=== PATIENT | female | born 1955 | race African-American/Black ===

== ENCOUNTER 2023-04-01 22:25 | Inpatient (IN) | payer MEDICARE, OTHER ==
[~2023-04-01] VITALS: Ht 170.2 cm; Wt 86.6 kg
--- NOTE | 2023-04-01 23:45 | NUR ---
#18 H/L PLACED IN L EJ, LABS DRAWN/ SENT TO LAB.
[2023-04-02 00:41] LABS: HEMATOCRIT 37.5 % (31.2-41.9); MEAN CORPUSCULAR HEMOGLOBIN 29.9 uug (24.7-32.8); MEAN CORPUSCULAR VOLUME 92.5 fL (75.5-95.3); PLATELET COUNT (AUTO) 226 K/uL (179-408)
[2023-04-02 01:07] LABS: THYROID STIMULATING HORMONE 1.211 mIU/mL (0.358-3.740)
[2023-04-02 01:15] LABS: ACETAMINOPHEN < 2.0 ug/mL (10-30); ALANINE AMINOTRANSFERASE 33 U/L (14-59); ALKALINE PHOSPHATASE 84 U/L (50-136); ASPARTATE AMINOTRANSFERASE 16 U/L (15-37); BILIRUBIN,DIRECT 0.1 mg/dL (0.0-0.2); BILIRUBIN,TOTAL 0.1 mg/dL (0.2-1.0); CARBON DIOXIDE 29 mmol/L (21-32); CHLORIDE 104 mmol/L (98-107); CREATININE 0.8 mg/dL (0.6-1.3); POTASSIUM 4.8 mmol/L (3.5-5.1); TOTAL PROTEIN, SERUM 6.6 g/dL (6.4-8.2); UREA NITROGEN, BLOOD 14 mg/dL (7-18)
--- NOTE | 2023-04-02 01:15 | NUR ---
IN AND OUT CATH INSERTED/ URINE COLLECTED/ SENT TO LAB.
[2023-04-02 02:05] LABS: *BILIRUBIN,URIN NEGATIVE (NEGATIVE); *BLOOD, URINE NEGATIVE (NEGATIVE); *CLARITY,URINE CLEAR (CLEAR); *COLOR,URINE YELLOW (YELLOW); *KETONES,URINE NEGATIVE (NEGATIVE); *UROBILINOGEN,URINE 0.2 E.U./dl (NORMAL); LEUKOCYTE ESTERASE ,URINE NEGATIVE (NEGATIVE); NITRITE, URINE NEGATIVE (NEGATIVE); PH,URINE 5.5 (5.0-8.0)
[2023-04-02 02:08] LABS: UGLUCOSE 2+ (NEGATIVE)
[2023-04-02 02:18] LABS: *AMPHETAMINE, URINE NEGATIVE (NEGATIVE); *CANNABINOID, URINE NEGATIVE (NEGATIVE); *COCCAINE, URINE NEGATIVE (NEGATIVE); *PHENCYCLIDINE SCREEN,URINE NEGATIVE (NEGATIVE)
--- NOTE | 2023-04-02 04:00 | NUR ---
REPORT GIVEN TO HITESH HERNANDEZ.
--- NOTE | 2023-04-02 04:15 | NUR ---
Pt. admitted to 312 , under care of Dr. TUBBS Belongs List completed
--- NOTE | 2023-04-02 04:15 | NUR ---
RECEIVED PATIENT FROM ER DX: HYPERGLYCEMIA AND INCREASE WEAKNESS . AAOX4,MAEX4 BUT WEAK WAS ABLE TO WALK FROM GURNEY TO BED HAND HELD ASSIST PATIENT WALKS WITH WALKER AT HOME . NO RESPIRATORY DISTRESS NOTED BREATHING EVEN AND UNLABORED. ORIENTED TO ROOM AND EQUIPMENT (CALL LIGHT PLACED WITH IN REACH ).CALLED [facility] FOR ADMISSION ORDERS .
--- NOTE | 2023-04-02 04:29 | NUR ---
DR SKAGGS SPEAKING WITH DR HUTCHISON.
[2023-04-02 04:30] VITALS: BP 142/70; TEMP 98; O2SAT 92
--- NOTE | 2023-04-02 05:01 | NUR ---
called [facility] school community relations coordinator swapnil goff for admission orders .
--- NOTE | 2023-04-02 06:33 | NUR ---
called [facility] service and spoked with service informed need for admission orders for a new patient from ER .
--- NOTE | 2023-04-02 07:30 | NUR ---
REPORT RECEIVED FROM NIGHT NURSE: 1) MAINTAINING A SAFE ENVIRONMENT:Bed alarm activated, in low position, side rails x2 up, call sousa within reach, and floor clear of clutter. 2) BREATHING: No sign of SOB, cyanosis, no sign of distress. On RA - SATS in the high 90s. 3) COMMUNICATION:Patient is able to communicate her needs. 4) EATING & DRINKING:Patient on Consistent Carb Diet.. 5) ELIMINATION: Patient wears a diaper. 6) CONTROLLING BODY TEMPERATURE: Patient is apyrexial - no signs of sepsis observed. 7) HYGIENE: Needs minimum assistance. 8) MOBILIZING: Bed rest, due to condition. 9) SLEEPING: No issues - sleeping at the time of this report. 10)PLAN: (i) Maintaining Safety - SOB, Temperature within normally limits. (ii) Needs a Midline - will ask MD for an order. (ii) Assistance to be provided as needed.
--- NOTE | 2023-04-02 09:00 | NUR ---
AM MEDICATION ADMINISTERED PRESCRIBED.
[2023-04-02] MEDS ORDERED: ONDANSETRON 4 MG/2 ML VIAL IV PRN (09:15)
[2023-04-02] MEDS ORDERED: ZOLPIDEM 5 MG TABLET PO PRN (09:15)
[2023-04-02] MEDS ORDERED: DEXTROSE 50% 50 ML DISP.SYRIN IV PRN (09:15)
[2023-04-02] MEDS ORDERED: MAGNESIUM HYDROXIDE 30 ML LIQUID UDC PO PRN (09:15)
[2023-04-02] MEDS ORDERED: REMEDY ESSENTIAL ZINC PASTE 113 GM TP PRN (09:15)
--- NOTE | 2023-04-02 09:30 | NUR ---
Midline insertion: 1) MD advised. 2) No order provided because patient will not need iv treatment. 3) Once blood sugar has been stabilized - patient will be discharged home.
[2023-04-02] MEDS: ENOXAPARIN SODIUM 40 MG/0.4 ML DISP.SYRIN SQ SCH (10:11)
[2023-04-02 11:12] VITALS: BP 106/42; TEMP 98.7; O2SAT 95
--- NOTE | 2023-04-02 11:25 | NUR ---
BLOOD SUGAR MONITORIN) Blood sugar 263 - insulin administered AC as prescribed. 2) No signs of hypo/hyperglycemia observed
[2023-04-02] MEDS: BLOOD SUGAR DIAGNOSTIC 1 EACH STRIP VI SCH ×3 (11:28→21:04)
[2023-04-02] MEDS: INSULIN REGULAR, HUMAN 300 UNIT/3 ML VIAL SQ PRN ×2 (11:39→17:31)
--- NOTE | 2023-04-02 12:46 | NUR ---
HYGIENE: - Given a wet towel, and washing products as requested.
--- NOTE | 2023-04-02 14:02 | NUR ---
ROUNDING - Asleep comfortably, no sign of pain, or distress observed.
[2023-04-02 15:24] VITALS: BP 110/67; TEMP 98.6; O2SAT 92
--- NOTE | 2023-04-02 16:28 | NUR ---
ROUNDING - Asleep comfortably, no sign of pain, or distress observed.
[2023-04-02] MEDS ORDERED: OXYC-133 PO (16:40)
[2023-04-02] MEDS ORDERED: ATOR20TA PO (16:42)
[2023-04-02] MEDS ORDERED: ASPI81TA31 PO (16:42)
[2023-04-02] MEDS ORDERED: METF-442 PO (16:42)
[2023-04-02] MEDS ORDERED: LOSA25TA27 PO (16:42)
--- NOTE | 2023-04-02 18:39 | NUR ---
END OF SHIFT REPORT: 1) No complaint or non-verbal signs of pain during the rest of this shift. 2) Patient eating & drinking well, no complaint of nausea, vomiting observed or discomfort, or hypo/hyperglycemia observed. 3) No sign of distress, SOB, or cyanosis observed. 4) Will endorse care to night staff accordingly.
[2023-04-02 20:15] VITALS: BP 96/49; TEMP 98.3; O2SAT 93
[2023-04-02] MEDS: INSULIN REGULAR, HUMAN 300 UNITS/3 ML VIAL SQ PRN (21:06)
[2023-04-03] MEDS: ACETAMINOPHEN 325 MG TABLET PO PRN ×2 (02:09→08:32)
--- NOTE | 2023-04-03 04:15 | NUR ---
Awake alert and oriented x4 Admitted for hyperglycemic episode on admission. All needs attended. No acute distress noted. Tylenol given for headache. Incontinent of bowel and bladder. Kept clean and dry Possible d/c today. Right jugular INT intact, flushed and patent. Will monitor patient.VSS.
[2023-04-03 05:25] VITALS: BP 116/61; TEMP 97.7; O2SAT 96
[2023-04-03] MEDS: PANTOPRAZOLE SODIUM 40 MG TABLET.DR PO SCH (06:09)
[2023-04-03] MEDS: BLOOD SUGAR DIAGNOSTIC 1 EACH STRIP VI SCH ×4 (06:31→21:26)
[2023-04-03 06:56] LABS: HEMATOCRIT 36.8 % (31.2-41.9); MEAN CORPUSCULAR HEMOGLOBIN 30.6 uug (24.7-32.8); MEAN CORPUSCULAR VOLUME 91.8 fL (75.5-95.3); PLATELET COUNT (AUTO) 205 K/uL (179-408)
[2023-04-03 07:31] LABS: THYROID STIMULATING HORMONE 1.093 mIU/mL (0.358-3.740)
[2023-04-03 07:35] LABS: CREATININE 0.7 mg/dL (0.6-1.3); PHOSPHOROUS 3.2 mg/dL (2.5-4.9); POTASSIUM 4.1 mmol/L (3.5-5.1)
[2023-04-03 07:51] LABS: MAGNESIUM 1.1 mg/dL (1.8-2.4)
--- NOTE | 2023-04-03 07:58 | NUR ---
CRITICAL LAB: MAG 1.1 H received call from lab, notified Diana Loza NP. DIRECTOR COST acknowledged.
[2023-04-03] MEDS: INSULIN REGULAR, HUMAN 300 UNIT/3 ML VIAL SQ PRN ×3 (08:33→16:40)
[2023-04-03] MEDS: ENOXAPARIN SODIUM 40 MG/0.4 ML DISP.SYRIN SQ SCH (08:34)
[2023-04-03] MEDS ORDERED: MAGNESIUM OXIDE 400 MG TABLET PO ONE (09:00)
[2023-04-03 11:55] VITALS: BP 119/59; TEMP 98.3; O2SAT 97
[2023-04-03] MEDS ORDERED: INSU100V28 SQ ×2 (15:21)
[2023-04-03 16:13] VITALS: BP 124/75; TEMP 98.6; O2SAT 95
--- NOTE | 2023-04-03 16:45 | NUR ---
ACCU CHECK AND INSULIN ADMINISTRATION EDUCATION: Demonstrated and educated pt on proper accu check technique and how test blood sugar. Also demonstrated and educated pt on insulin administration and sliding scale for Humalog. Pt verbalized understanding. Reinforcement needed for home administration with pt's own supplies and machine. Offered [facility] to come and educate, dtr refused.
--- NOTE | 2023-04-03 16:59 | NUR ---
Applied lotion to pt's arms, hands, feet, legs, and face per pt request for dry skin. 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 After application pt said, "Thank you so much."
--- NOTE | 2023-04-03 18:15 | NUR ---
Charge nurse and RN assisting family, latesha White, since [id number] with coordinating with pharmacies, family, and Diana Loza NP to get insulin prescription and accu check machine and needles for the pt prior to discharge.
[2023-04-03 20:35] VITALS: BP 132/73; TEMP 98.4; O2SAT 94
[2023-04-04 04:25] VITALS: BP 133/69; TEMP 98.4; O2SAT 94
[2023-04-04] MEDS: PANTOPRAZOLE SODIUM 40 MG TABLET.DR PO SCH (06:05)
[2023-04-04] MEDS: BLOOD SUGAR DIAGNOSTIC 1 EACH STRIP VI SCH ×4 (06:52→20:50)
[2023-04-04] MEDS: ENOXAPARIN SODIUM 40 MG/0.4 ML DISP.SYRIN SQ SCH (08:16)
[2023-04-04 08:42] LABS: CREATININE 0.7 mg/dL (0.6-1.3); POTASSIUM 4.1 mmol/L (3.5-5.1)
[2023-04-04 08:47] LABS: MAGNESIUM 1.1 mg/dL (1.8-2.4)
[2023-04-04] MEDS: INSULIN REGULAR, HUMAN 300 UNIT/3 ML VIAL SQ PRN ×2 (11:31→17:11)
[2023-04-04 11:34] VITALS: BP 120/62; TEMP 98.6; O2SAT 94
[2023-04-04 15:08] VITALS: BP 122/70; TEMP 98.2; O2SAT 95
[2023-04-04] MEDS ORDERED: MAGNESIUM OXIDE 400 MG TABLET PO ONE ×2 (17:00→18:00)
--- NOTE | 2023-04-04 18:32 | NUR ---
Patient awake and alert. Blood sugar have been elevated requiring insulin coverage. Patient for discharge today, provider called pt pharmacy and clarified dc insulin order. Notified daughter and said she will come in today and will wait first for pharmacy's call when med ready.
[2023-04-04 20:17] VITALS: BP 127/72; TEMP 98.1; O2SAT 92
[2023-04-04] MEDS: INSULIN REGULAR, HUMAN 300 UNITS/3 ML VIAL SQ PRN (20:52)
--- NOTE | 2023-04-04 21:52 | NUR ---
Pt received in bed able to ambulate around the room no discomfort report BS check 234 coverage with 4 units insulin as order Pt has a snack tolerates well po intake. 2139 Pt's daughter Karina came to forklift picker Pt who has an order to be discharge today. Niba understood discharge instructions all belongings given to pt, and Pt signed forms. Pt discharged AOX4 NO PAIN AFEBRILE stable condition understood to follow up with PCP AND NIBA STATES SHE GOT THE INSULIN PRESCRIBED ALREADY. pT TRANSPORTED BY W/C TO HER OWN PRIVATE CAR.
== END 2023-04-04 21:45 | disposition home or self-care (01) | DRG 638 ==
LOC: ER 22:25 → TELE3 04-02 04:05 → MEDSURG3 04-02 15:00
PROVIDERS: ADMIT Student in an Organized Health Care Education/Training Program; ATTEND Student in an Organized Health Care Education/Training Program
DX: E11.65 Type 2 diabetes mellitus with hyperglycemia (principal); E44.1 Mild protein-calorie malnutrition; R53.1 Weakness; E78.5 Hyperlipidemia, unspecified; Z96.653 Presence of artificial knee joint, bilateral; I10 Essential (primary) hypertension; E88.09 Other disorders of plasma-protein metabolism, not elsewhere classified; Z79.84 Long term (current) use of oral hypoglycemic drugs
CPT/HCPCS: 36415; 83735; 84100; 84443; 84484; 85025; 93005; A4663; C1758; G0378; G0480; J1650; J1815